=== PATIENT | male | born 2000 | race African-American/Black ===

== ENCOUNTER 2021-07-20 12:41 | Outpatient (CLI) | payer OTHER | END 2021-07-20 12:42 | disposition home or self-care (01) | LOC: BICRAD 12:41 | PROVIDERS: ATTEND Internal Medicine Gastroenterology | DX: K51.90 Ulcerative colitis, unspecified, without complications (principal); R76.12 Nonspecific reaction to cell mediated immunity measurement of gamma interferon antigen response without active tuberculosis | CPT/HCPCS: 71046 ==